=== PATIENT | female | born 1980 | race Hispanic/Latino ===

== ENCOUNTER 2020-12-04 01:19 | Day surgery (SDC) | payer OTHER, SELFPAY ==
[2020-11-27 13:04] VITALS: BMI 20.7
[2020-12-04] VITALS (9 sets, daily range): BP systolic 117–142; BP diastolic 51–92; PULSE 74–94; RESP 14–18; TEMP 36.2–37.2; O2SAT 95–100
--- NOTE | 2020-12-04 07:54 | ECG_ITS ---
Measurements Intervals [place] Rate: 93 P: 47 FL: 169 QRS: 76 QRSD: 100 T: 42 QT: 333 QTc: 415 Interpretive Statements SINUS RHYTHM WITH SINUS ARRHYTHMIA NORMAL ECG Electronically Signed On 12-04-2020 10:03:03 CDT by Ryland Blum D.O.
[2020-12-04] MEDS: LACTATED RINGERS 1,000 ML 30 ML IV CONT ×2 (09:14→13:18)
[2020-12-04 09:20] LABS: Hematocrit 40.3 % (37.0-47.0); Hemoglobin 13.3 g/dL (12.0-15.0)
--- NOTE | 2020-12-04 09:20 | WPDANESEPPF ---
Anes - Initial Pre Proc Eval Procedure: Operation Date: 12/04/20 10:30 Proposed Procedures p Bilateral Augmentation Mammoplasty, - Morgan Song MD s Abdominoplasty - Morgan Song MD Date/Time: 12/04/20 09:20 Surgeon: Morgan Song MD Pre Op Diagnosis: skin laxity, micromastia Patient Data Age: 40 Gender: F Height: 1.6 m Weight: 53.7 kg Last Vital Signs Temp 36.6 C 12/04/20 09:00 Pulse 92 12/04/20 09:00 Resp 16 12/04/20 09:00 BP 119/51 L 12/04/20 09:00 Pulse Ox 100 12/04/20 09:00 Allergies Allergy/AdvReac Type Severity Reaction Status Date / Time No Known Allergies Allergy Unverified 12/04/20 09:05 Home Medications Medication Instructions Recorded Confirmed Type zolpidem 12.5 mg tablet,extended 12.5 mg PO QHS PRN 05/27/20 12/04/20 History release,multiphase docusate sodium 100 mg capsule 100 mg PO DAILY #14 cap 11/19/20 12/04/20 Rx ondansetron HCl 4 mg tablet 4 mg PO Q8H #21 tablet 11/19/20 12/04/20 Rx carisoprodol 350 mg tablet 350 mg PO TID PRN #21 tablet 11/20/20 12/04/20 Rx oxycodone-acetaminophen 5 mg-325 1 tablet PO Q6H PRN #15 tablet 11/20/20 12/04/20 Rx mg tablet Laboratory Tests 12/04/20 12/04/20 08:53 08:53 Hgb Pending Hct Pending Cotinine Pending Patient hx anesthesia problems: none Family hx anesthesia problems: none PMFSH Surgical History Surgical History (Updated 12/04/20 @ 09:21 by Richie Mcmullen MD) S/P hernia repair Social History Social History Smoking status: Never smoker Alcohol intake: current Living arrangements: alone Spiritual care concerns: No Anes - Eval Final PreProcedure Day of Procedure 12/04/20 09:20 Patient weight: normal Heart: regular rate and rhythm Lungs: clear to auscultation Airway: Mallampati scale class II Neurological: alert and oriented Last oral intake: >/= 8 hours ASA classification: I Emergent: no Anesthetic plan: proceed Anesthesia type and monitoring: general ETT and standard monitoring Informed Consent: The patient's anesthetic plan and its attendant risks and benefits were discussed with the patient/family/POA. Questions were solicited and answers provided to the satisfaction of the patient/family/POA.
[2020-12-04 09:24] LABS: Urine Cotinine NEGATIVE
--- NOTE | 2020-12-04 09:34 | WPDHPUPDATE1 ---
History and Physical Update Update Date/Time: 12/04/20 09:34 History and Physical has been reviewed, including an updated exam of the patient. There are NO changes in the patient's condition. Risks, benefits, and alternatives have been discussed and questions answered. Patient agrees to proceed with procedure.
--- NOTE | 2020-12-04 09:50 | W.PM.PROC2 ---
Procedure Note - Detailed Date of Procedure 12/04/20 Pre-op Diagnosis skin laxity, micromastia Post-op Diagnosis same Procedure Performed 1. Bilateral augmentation mammaplasty 2. Progressive tension abdominoplasty Surgeon Morgan Song MD Anesthesia general Findings Bilateral Dual Plane 3 Augmentation Andra Al Soft Touch 360cc Right - REF# [id number] SN [id number] Left - REF# [id number] SN [id number] Abdominal tissue Removed - 794 grams Description of Procedure She is here today for abdominoplasty. Previously and again today the risks, benefits, alternatives were discussed in extensive detail. I wanted them to be very realistic about the risks involved as well as expectations. We discussed aftercare and what to monitor for. I was very upfront about the risks of wound breakdown leading to loss of skin, open wounds, and need for additional procedures with permanent abdominal deformity. We discussed DVT/PE risks and management. Made sure answered all of their questions to their satisfaction today and consent was obtained. Marked in the preoperative holding area with her verification. The patient was taken to the operating room placed supine on the operating table. Anesthesia was provided by anesthesiology. A surgical time-out was taken. Breast We cleansed the skin and 1% lidocaine and 0.25% Marcaine with epinephrine was used anesthetize as a field block. She was prepped and draped in a standard sterile fashion. Tegaderm nipple Ellis were placed. A 15 blade used to make an incision along the inframammary fold. Dissection was continued at 45 degree angle until the chest wall as identified. I elevated above the muscle in a dual plane fashion as above. I incised the pectoralis major along its inferior border and completely released the inferior border leaving the medial border intact. I created a subpectoral pocket in the appropriate dimensions based on our preoperative planning for the implant. I then copiously irrigated with saline solution and verified a strict hemostasis. Next the use a triple antibiotic and Betadine containing solution to irrigate the pocket. I washed my gloves with the triple antibiotic and Betadine solution. We washed the implant immediately upon opening it with this solution and only opened it when we needed it. I used implant funnel and no-touch technique. The implant was introduced into the pocket using the funnel. Having verified positioning of the implant this was closed using 2-0 Vicryl followed by 3-0 Monocryl in a running subcuticular 4-0 Monocryl followed by tissue glue. Abdomen I placed the patient in a flexed position to verify the upper and lower markings would reach. I then placed supine. A thorough abdominal examination was completed. Stab incisions were made and tumescent solution infiltrated. A liposuction basket cannula was utilized to provide discontinuous undermining. A 10 blade was used to make the upper incision. I continued dissection down to the level of fascia. Elevated just what was necessary for repair of the diastasis. I then again flexed the bed to verify the upper skin flap would reach the lower markings without tension. Once verified I placed her supine once again and a 10 blade used to make the lower incision. I elevated up to level the umbilicus and left the umbilicus intact on a well-vascularized stalk. The intervening tissue was removed. A 2 mm blunt cannula with 0.5% bupivicaine was injected deep to the fascia bilaterally. I plicated the diastasis recti using 0 PDO stratafix barbed suture. This was in 2 separate layers using 2 separate sutures as well. I repaired around the umbilicus leaving plenty of room for well-vascularized stalk of the umbilicus with 2-0 PDS. I also repaired lateral to the rectus using two layers of 0 PDO stratafix. The patient was flexed and starting from superior to inferior began plication using 2-0 Vicryl to obliterate all sp
[2020-12-04] MEDS: BUPIVACAINE HCL 0.25% PF 30 ML VIAL INFILTRATE (09:51)
[2020-12-04] MEDS: LACTATED RINGERS IRRIG 1,000 ML, LIDOCAINE HCL 1% LOCAL INJ 50 ML, EPINEPHrine HCL INJ ... INFILTRATE (09:51)
[2020-12-04] MEDS: ceFAZolin 2 GM/D5W 50 ML 2 GM/50 ML BAG IVPB (09:51)
[2020-12-04] MEDS: BUPIVACAINE HCL 0.5% PF 30 ML VIAL INFILTRATE (11:47)
[2020-12-04] MEDS: fentaNYL CITRATE INJ (*CRX) 100 MCG/2 ML VIAL 25 MCG IV PUSH ×2 (13:44→14:27)
--- NOTE | 2020-12-04 14:49 | PC.NURSE ---
This patient, Bridget Mullen, was received from PACU on 12/04/20 at 1449 per stretcher. Family oriented to unit policies and routines
[2020-12-04] MEDS: LACTATED RINGERS 1,000 ML 125 ML IV CONT (16:23)
[2020-12-04] MEDS: carisoprodoL (*CRX) 350 MG TABLET PO ×2 (18:04→23:35)
[2020-12-04] MEDS: oxyCODONE/ACETAMINOPHEN (*CRX) 5-325 MG TABLET PO ×2 (18:05→23:35)
[2020-12-04] MEDS: DOCUSATE SODIUM 100 MG CAPSULE PO (19:01)
[2020-12-04] MEDS: ENOXAPARIN 40 MG/0.4 ML SYRINGE SUB-Q (19:01)
[2020-12-05 04:10] VITALS: BP 118/78; PULSE 85; RESP 18; TEMP 37.1; O2SAT 96
[2020-12-05] MEDS: oxyCODONE/ACETAMINOPHEN (*CRX) 5-325 MG TABLET PO (05:48)
[2020-12-05] MEDS: carisoprodoL (*CRX) 350 MG TABLET PO (05:49)
--- NOTE | 2020-12-05 06:44 | WPDPN ---
Progress Note: A&P Assessment and Plan (1) Skin laxity: Code(s): L57.4 - Cutis laxa senilis Status: Acute Assessment and Plan: She is doing very well after bilateral augmentation mammoplasty and progressive tension abdominoplasty. Will discharge home. Follow-up in 1 week. Today we had a lengthy discussion with her and her about the care. We discussed what to monitor for. Activity limitations. This was a lengthy open-ended conversation making sure we answered all their questions. They voiced understanding. I will see her back. Call with any questions or concerns. (2) Micromastia: Code(s): N64.82 - Hypoplasia of breast Status: Acute (3) History of umbilical hernia repair: Code(s): Z98.890 - Other specified postprocedural states; Z87.19 - Personal history of other diseases of the digestive system Status: Acute (4) Chronic constipation: Code(s): K59.09 - Other constipation Status: Acute Assessment and Plan: She does have a history of chronic constipation. She is going to double her probiotic which she has done in the past. Also take milk of magnesium no bowel movement within the next 24 hours. She will keep us updated. Subjective Date/time seen: 12/05/20 06:44 Overnight has done well. Pain controlled. No nausea vomiting. No fevers or chills. No shortness of breath. No chest pain. No calf tenderness. She has tolerated p.o.. She has ambulated. Review of Systems Review of Systems: She does state she has chronic constipation. All systems reviewed & are unremarkable except as noted in HPI and below Exam Narrative: Alert and oriented no obvious distress Respiratory is unlabored. Bilateral breasts are soft. No signs of infection. No hematoma. No seroma. Good color and capillary refill. Abdomen is healing well. No signs of infection. No hematoma. No seroma. Good color and capillary refill. No calf tenderness. Negative Homans. Objective Data Vital Signs Vital Signs: Vital Signs - 24 hr 12/04/20 09:00 12/04/20 13:18 12/04/20 13:30 Temperature 36.6 C 36.2 C L Pulse Rate 92 94 89 Respiratory Rate 16 16 16 Blood Pressure 119/51 L 142/92 H 134/77 Pulse Oximetry 100 100 100 12/04/20 13:45 12/04/20 14:00 12/04/20 14:15 Temperature Pulse Rate 92 87 86 Respiratory Rate 14 17 17 Blood Pressure 135/78 134/87 135/83 Pulse Oximetry 100 95 97 12/04/20 14:30 12/04/20 19:30 12/04/20 23:40 Temperature 37.1 C 37.2 C Pulse Rate 83 89 74 Respiratory Rate 14 18 18 Blood Pressure 133/87 123/73 117/71 Pulse Oximetry 97 96 96 12/05/20 04:10 Temperature 37.1 C Pulse Rate 85 Respiratory Rate 18 Blood Pressure 118/78 Pulse Oximetry 96 Intake/Output Intake/Output: Intake & Output 12/02/20 12/03/20 12/04/20 12/05/20 23:59 23:59 23:59 23:59 Intake Total 1600 200 Output Total 1500 400 Balance 100 -200 Meds/Results Medications: Active Medications Generic Name Dose Route Start Last Admin Trade Name Freq PRN Reason Stop Dose Admin Carisoprodol 350 mg 12/04/20 18:00 12/05/20 05:49 Carisoprodol (*Crx) 350 Mg Tablet PO 350 mg Q6HR ANALY Administration Diazepam 5 mg 12/04/20 13:02 Diazepam (*Crx) 5 Mg Tablet PO TID PRN Anxiety Docusate Sodium 100 mg 12/04/20 21:00 12/04/20 19:01 Docusate Sodium 100 Mg Capsule PO 100 mg Q12HR ANALY Administration Enoxaparin Sodium 40 mg 12/04/20 19:00 12/04/20 19:01 Enoxaparin 40 Mg/0.4 Ml Syringe SUB-Q 40 mg DAILY ANALY Administration Lactated Ringer's 1,000 mls @ 125 mls/hr 12/04/20 13:05 12/05/20 00:36 Lr - Lactated Ringers Iv IV CONT Not Given .Q8H ANALY Morphine Sulfate 2 mg 12/04/20 13:02 Morphine Sulfate (*Crx) 2 Mg/Ml Inj IV PUSH Q2H PRN Pain Ondansetron HCl 4 mg 12/04/20 13:02 Ondansetron Inj 4 Mg/2 Ml Vial IV PUSH Q6H PRN Nausea Oxycodone/Acetaminophen 1 - 2 tablet
--- NOTE | 2020-12-05 06:50 | PM.DS ---
DS: Admitting Diagnosis Discharge Date 12/05/2020 Admitting Diagnosis Micromastia Skin laxity DS: Discharge Diagnosis Discharge Diagnosis (1) Micromastia: Code(s): N64.82 - Hypoplasia of breast Status: Acute (2) Skin laxity: Code(s): L57.4 - Cutis laxa senilis Status: Acute (3) History of umbilical hernia repair: Code(s): Z98.890 - Other specified postprocedural states; Z87.19 - Personal history of other diseases of the digestive system Status: Acute (4) Chronic constipation: Code(s): K59.09 - Other constipation Status: Acute DS: Summary Hospital Course Hospital Course: She underwent bilateral augmentation mammoplasty and progressive tension abdominoplasty uneventfully. Postoperatively she has done very well. Will discharge home. Follow-up. Time Spent with Patient Time attestation: Total time spent providing and/or coordinating discharge services:25 min Exam Narrative: Alert and oriented no obvious distress Respiratory is unlabored. Bilateral breasts are soft. No signs of infection. No hematoma. No seroma. Good color and capillary refill. Abdomen is healing well. No signs of infection. No hematoma. No seroma. Good color and capillary refill. No calf tenderness. Negative Homans. DS: Data Data Completed and Pending Labs on day of discharge: Labs from last 24 hours 12/04/20 12/04/20 08:53 08:53 Hgb 13.3 Hct 40.3 Cotinine Negative Discharge Plan Discharge Patient Disposition: Home, Self-Care Discharge Instructions: POST OPERATIVE DISCHARGE INSTRUCTIONS MORGAN SONG M.D. [facility] [place] [address] [address] for 24 hours after anesthesia and while you are taking pain medication. Take all prescribed medication as directed Diet as tolerated. Begin gentle shoulder rolls and arm stretches 10 times per hour. No lifting or activity that raises blood pressure for 48 hours. Regular walking / ambulation. No showering until directed to. No pools or tubs for 2 weeks. Slowly stand up straight as tolerated over the week. No straining or lifting more than 20 pounds for 6 weeks. May take probiotic. If now bowel movement within 24 hours may take milk of magnesia. Please contact us with any constipation concerns. You may shower. Do not take pain medication before showering as the combination of medication and heat may cause you to feel dizzy or pass out. Let soap and water run over your incisions. Do not scrub or directly wash your incision. Replace the surgical bra and abdominal binder and wear them 23 hours per day. If you have any questions or concerns, please call the office . If it is after hours you will be directed to the ping pong table assembler exchange. Shortness of breath, chest pain, or other medical emergency dial 911 / proceed to the Emergency Room. Stand Alone Forms: General Discharge Instructions Follow-up/Referrals: Morgan Song MD [Physician] - 1 Week Discharge Medications: New diazepam 5 mg Tablet 5 mg PO TID PRN (Reason: Anxiety) Qty: 15 RF: 0 Continued docusate sodium [Colace] 100 mg capsule 100 mg PO DAILY Qty: 14 RF: 0 ondansetron HCl [Zofran] 4 mg tablet 4 mg PO Q8H Qty: 21 RF: 0 carisoprodol [Soma] 350 mg tablet 350 mg PO TID PRN (Reason: muscle pain) Qty: 21 RF: 0 oxycodone-acetaminophen [Percocet] 5-325 mg tablet 1 tablet PO Q6H PRN (Reason: pain) Qty: 15 RF: 0 Held zolpidem 12.5 mg tablet,ext release multiphase 12.5 mg PO QHS PRN (Reason: Insomnia) RF: 0 Hold Instructions: Resume on 12/15/20. Do not take with Valium. Take Zolpidem OR Valium; however, not both.
[2020-12-05 07:32] VITALS: BP 117/71; PULSE 85; RESP 18; TEMP 36.4
== END 2020-12-05 08:05 | disposition home or self-care (01) ==
LOC: ANHSURGERY 09:56 → ANHOB2 14:44
PROVIDERS: Anesthesiology; PCP Family Medicine; Visit Provider Surgery Plastic and Reconstructive Surgery
PROC: (CPT 19325; principal; 2020-12-04 10:30)
PROC: (CPT 19325; 2020-12-04 10:30)
DX: Z41.1 Encounter for cosmetic surgery (principal); L57.4 Cutis laxa senilis; N64.82 Hypoplasia of breast; K59.09 Other constipation; Z79.899 Other long term (current) drug therapy
CPT/HCPCS: 19325; 15830; 15847; 80307; 85014; 85018; 93005; 99199; A9270; J0171; J0330; J0690; J1100; J1170; J1580; J1650; J2250; J2405; J2704; J2710; J3010; J7120